=== PATIENT | female | born 1950 | race Caucasian/White ===

== ENCOUNTER 2016-10-14 18:04 | Emergency (ER) | payer OTHER | END 2016-10-14 19:57 | disposition home or self-care (01) | LOC: ER1 18:04 | DX: S20.211A Contusion of right front wall of thorax, initial encounter (principal); J44.9 Chronic obstructive pulmonary disease, unspecified; Z90.49 Acquired absence of other specified parts of digestive tract; Z87.891 Personal history of nicotine dependence; X58.XXXA Exposure to other specified factors, initial encounter | CPT/HCPCS: 71101; 99284 ==

== ENCOUNTER → 2020-09-09 | Outpatient (CLI) | payer OTHER ==
[~2020-09-09] MED LIST: AUGMENTIN 875-1 EACH PO
== END ==
LOC: RAD 12:32
DX: R10.9 Unspecified abdominal pain (principal); K59.00 Constipation, unspecified
CPT/HCPCS: 74018

== ENCOUNTER 2021-03-29 11:43 | Inpatient (IN) | payer OTHER ==
[~2021-03-29] VITALS: Ht 170.2 cm; Wt 69.4 kg
[2021-03-29 12:57] LABS: HEMOGLOBIN 13.3 gm/dl (12.3-15.3); RED BLOOD COUNT 4.63 M/UL (4.00-5.10); WHITE BLOOD COUNT 9.8 K/UL (4.5-11.0)
[2021-03-29 13:29] LABS: BUN/CREATININE RATIO 21 (0-10)
[2021-03-29] MEDS ORDERED: SYNTHROID50 MCG PO (15:43)
[2021-03-29] MEDS ORDERED: ZOCOR40 MG PO (15:43)
[2021-03-29] MEDS ORDERED: PROTONIX 40 MG40 M1 PO (15:43)
[2021-03-29] MEDS ORDERED: LOPRESSOR 25 MG25 MG PO (15:43)
[2021-03-29] MEDS ORDERED: URECHOLINE 25 M25 MG PO (15:44)
[2021-03-29] MEDS ORDERED: FISH OIL 1,0001 EACH PO (16:16)
[2021-03-29] MEDS ORDERED: ASPIRIN EC81 MG PO (16:16)
[2021-03-29] MEDS ORDERED: CALCIUM CARBON600 MG PO (16:17)
[2021-03-29] MEDS ORDERED: VITAMIN C 500500 MG PO (16:17)
[2021-03-29] MEDS ORDERED: VITAMIN D325 MCG PO (16:17)
[2021-03-30 04:14] LABS: BUN/CREATININE RATIO 22 (0-10)
[2021-03-30 04:18] LABS: HEMOGLOBIN 12.2 gm/dl (12.3-15.3)
[2021-03-30 04:20] LABS: RED BLOOD COUNT 4.14 M/UL (4.00-5.10); WHITE BLOOD COUNT 6.7 K/UL (4.5-11.0)
[2021-03-31 03:19] LABS: HEMOGLOBIN 11.9 gm/dl (12.3-15.3); RED BLOOD COUNT 3.96 M/UL (4.00-5.10)
[2021-03-31 03:23] LABS: WHITE BLOOD COUNT 11.8 K/UL (4.5-11.0)
[2021-03-31 04:02] LABS: BUN/CREATININE RATIO 24 (0-10)
[2021-04-01] MEDS ORDERED: DECADRON6 MG PO (09:31)
[2021-04-01] MEDS ORDERED: COMBIVENT RESPIM4 GM INH (09:41)
[2021-04-01] MEDS ORDERED: CEFUROXIME500 MG PO (09:41)
--- NOTE | 2021-04-01 10:33 | NUR ---
ROOM AIR O2 SAT 88%.
== END 2021-04-01 14:39 | disposition home health service (06) | DRG 177 ==
LOC: ER1 11:43 → CDU 14:51 → PROG CARE 17:22
PROVIDERS: Physician Assistant; ADMIT Internal Medicine Infectious Disease
PROC: 3E0333Z Introduction of Anti-inflammatory into Peripheral Vein, Percutaneous Approach (ICD-10-PCS; principal; 2021-03-29)
PROC: 8E0ZXY6 Isolation (ICD-10-PCS; 2021-03-29)
PROC: 3E01340 Introduction of Influenza Vaccine into Subcutaneous Tissue, Percutaneous Approach (ICD-10-PCS; 2021-04-01)
DX: U07.1 COVID-19 (principal); J12.82 Pneumonia due to coronavirus disease 2019; J96.01 Acute respiratory failure with hypoxia; G93.41 Metabolic encephalopathy; N30.00 Acute cystitis without hematuria; B96.20 Unspecified Escherichia coli [E. coli] as the cause of diseases classified elsewhere; E03.9 Hypothyroidism, unspecified; K21.9 Gastro-esophageal reflux disease without esophagitis; E87.6 Hypokalemia; E86.0 Dehydration; Z79.82 Long term (current) use of aspirin; Z87.440 Personal history of urinary (tract) infections; Z87.891 Personal history of nicotine dependence; Z23 Encounter for immunization
CPT/HCPCS: 36415; 36600; 70450; 71045; 80053; 80307; 81001; 82140; 82550; 82553; 82803; 83615; 83735; 83874; 84439; 84443; 84484; 85025; 85379; 86140; 87077; 87086; 87186; 90686; 93005; 94640; 94664; 94760; 97110-GP-CQ; 97116-GP-CQ; 97162; 99285; G0008; G0480; J0696; J1100; J1650; J3480; J7030; U0002

== ENCOUNTER 2021-07-08 20:18 | Emergency (ER) | payer OTHER ==
[~2021-07-08 20:18] MED LIST changes: +ASPIRIN EC81 MG PO; +CALCIUM CARBON600 MG PO; +CEFUROXIME500 MG PO; +COMBIVENT RESPIM4 GM INH; +DECADRON6 MG PO; +FISH OIL 1,0001 EACH PO; +LOPRESSOR 25 MG25 MG PO; +PROTONIX 40 MG40 M1 PO; +SYNTHROID50 MCG PO; +URECHOLINE 25 M25 MG PO; +VITAMIN C 500500 MG PO; +VITAMIN D325 MCG PO; +ZOCOR40 MG PO
[2021-07-08 21:22] LABS: HEMOGLOBIN 13.9 gm/dl (12.3-15.3); RED BLOOD COUNT 4.49 M/UL (4.00-5.10); WHITE BLOOD COUNT 16.6 K/UL (4.5-11.0)
[2021-07-08 21:48] LABS: BUN/CREATININE RATIO 19 (0-10)
[2021-07-08] MEDS ORDERED: AUGMENTIN 875-1 EACH PO (23:30)
== END 2021-07-08 23:55 | disposition home or self-care (01) ==
LOC: ER1 20:18
DX: R09.89 Other specified symptoms and signs involving the circulatory and respiratory systems (principal); I11.9 Hypertensive heart disease without heart failure; D72.829 Elevated white blood cell count, unspecified
CPT/HCPCS: 70492; 71045; 80053; 82550; 82553; 83874; 84484; 85025; 85610; 93005; 99284; Q9967